=== PATIENT | female | born 1995 | race Caucasian/White ===

== ENCOUNTER 2017-01-19 21:01 | Inpatient (IN) | payer OTHER ==
[~2017-01-19 21:01] MED LIST: Docusate Sodium PO; FERR325T39 PO; Ibuprofen PO; METR500T PO; Oxycodone/Acetaminophen PO; PREN1TAB78 PO; SERT50TA PO
[2017-01-19] MEDS ORDERED: Calcium GLUCOnate 10% (Gm) 1 Gm/10 mL Inj ONE (22:01)
[2017-01-19] MEDS ORDERED: Magnesium Sulfate 4 Gm/100 mL Water Premix IV ONE (22:01)
[2017-01-19] MEDS ORDERED: Betameth Ace-Betam SodPhos 6 mg/mL 5 mL Inj IM ONE (22:15)
[2017-01-19] MEDS ORDERED: Lactated Ringer's 1,000 ML IV ONE (22:15)
[2017-01-19] MEDS ORDERED: Magnesium Sulf 20 Gm/500mL D5W Premix IV SCH (22:20)
[2017-01-19] MEDS ORDERED: Magnesium Sulf 4 Gm/100 mL D5W Premix IV ONE (22:20)
[2017-01-19] MEDS ORDERED: ERYTHROMYCIN BASE 250 MG PO ONE (22:20)
[2017-01-19] MEDS ORDERED: Ampicillin 2,000 mg/100 mL NS Minibag Plus IV SCH ×2 (22:30)
[2017-01-19] MEDS ORDERED: Erythromycin Inj 250 MG in 0.9% Sodium Chloride 100 ML IV ONE (22:30)
[2017-01-19 22:39] VITALS: PULSE 99
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
== END 2017-01-19 22:48 | disposition short-term general hospital (02) | DRG 778 ==
LOC: FBCO 21:01 → FBC 21:58
PROVIDERS: ADMIT Legal Medicine; ATTEND Obstetrics & Gynecology
PROC: 3E033GC Introduction of Other Therapeutic Substance into Peripheral Vein, Percutaneous Approach (ICD-10-PCS; principal; 2017-01-19)
DX: O60.03 Preterm labor without delivery, third trimester (principal); O99.323 Drug use complicating pregnancy, third trimester; F12.90 Cannabis use, unspecified, uncomplicated; Z3A.30 30 weeks gestation of pregnancy

== ENCOUNTER 2017-01-29 13:28 | Emergency (ER) | payer OTHER ==
[~2017-01-29] VITALS: Ht 167.6 cm; Wt 54.0 kg
[~2017-01-29 13:28] MED LIST changes: -Docusate Sodium PO; -FERR325T39 PO; -Ibuprofen PO; -METR500T PO; -Oxycodone/Acetaminophen PO; -SERT50TA PO
[2017-01-29 13:32] VITALS: BP 116/81; PULSE 89; RESP 16; O2SAT 100
--- NOTE | 2017-01-29 14:31 | ED.REPORT ---
HPI-Headache Date of Service Jan 29, 2017 ED Provider: Mauri Alvarenga MD The patient is an otherwise healthy 21 year old female who presents to the emergency department complaining of a headache that began 2 days ago. The patient had an epidural for a vaginal delivery 4 days ago. She developed the headache 2 days after the delivery. Her pain is resolved when laying flat and is exacerbated with standing or sitting up. She has no other complaints at this time. Nursing Notes Stated Complaint: POSS SPINAL HEADACHE Chief Complaint: Headache Nursing Notes Reviewed: Yes (Nuserv, exozet not reconiciled) Allergies: Coded Allergies: No Known Allergies (Unverified Allergy, Unknown, 04/01/14) Scheduled Vits W-Ca,Fe,FA(<1Mg) ( Formula) 1 Each Tablet 1 EACH PO DAILY General Time Seen by MD: 14:26 Chief Complaint Headache Hx Obtained From: Patient Arrived By: Walk-in Sudden in Onset?: Yes Onset Occurred: 2 days ago Symptom Duration: Since onset Location: : Generalized Quality: Painful Severity: Current: Mild Severity: Maximum: Severe Recent Healthcare: Recent doctor visit, Recent hospitalization Similar Sx Previous: No Past Medical History Past Medical History Vaginal delivery with hemorrhage s/p D&C Past Surgical History D&C Family History Noncontributory Smoking History Current Every Day Smoker Social History Other Social History: Local resident Ambulatory Status Independent Review of Systems Neurologic: Reports: Headache Complete sys rev & neg: except as marked. Physical Exam Initial Vital Signs Vital Signs (First) Date Time Temp Pulse Resp B/P Pulse Ox O2 Delivery O2 Flow Rate FiO2 01/29/17 13:32 36.6 89 16 116/81 100 Room Air Initial VS: Reviewed ENT: Mucous membranes moist, Conjunctiva normal, No scleral icterus Respiratory: Breath sounds normal, Clear to auscultation, No respiratory distress Cardiovascular: Regular rate & rhythm, Heart sounds normal, Intact distal pulses Abdomen / GI: Soft, Non-tender, No guarding, No rebound, No distention Lymphatic: No lymphadenopathy Extremities: Vascular intact, Neuro intact, No swelling, No tenderness Skin: Warm, Dry, No cyanosis Psychiatric: Mood/affect normal, Behavior normal, Normal thought content General/Constitutional: Awake, Alert, No acute distress Head / Eyes: Atraumatic, Normocephalic, PERRL, EOMI, No nystagmus, No photophobia, Conjunctiva NL, Temporal arteries NL Neck: Atraumatic, Supple, No meningismus, Full range of motion, No swelling, Non-tender, No masses Neurologic: Oriented X3, Speech NL, No motor deficits, No sensory deficits, CN II - XII intact, Cerebellar NL, Memory NL Re-Eval/Medical Decision Med Decision/Clinical Course This is a pleasant, 21-year-old female who underwent an epidural for delivery at [place] on January 25 and then developed a headache 2 days ago that is highly positional sounds like a spinal headache. She was no symptoms lying flat, anytime she sits up or stands up as a terrible headache. She has had no fevers , numbness, weakness, paresthesias or additional complaint. She is lying flat, has normal neurologic exam. She otherwise appears well. Overall clinical presentation is highly suggestive of a spinal headache, so anesthesia was consulted-they came and performed a blood patch, and the patient responded well. She is being discharged with routine and return precautions. And is now asymptomatic and improved condition. Source of Hx: Old records Re-Evaluation/Progress #1: Time of Eval: 16:51 Re-Evaluation/Progress Note: Procedure was completed. The patient can be discharged after 1700. Re-Evaluation/Progress #2: Time of Eval: 17:43 )( Patient Status: Condition improved Re-Evaluation/Progress Note: Rechecked the patient. She is feeling much better. Discussed plan for discharge. All questions were addressed. Consultation : Consulted With: Anesthesia Call Returned at: 14:38 Note: Someone will see the patient in the next few hours. Differential Diagnosis: Positive: Headache, post LP, Negative: Hemorrhage, cerebellar, Hemorrhage, epidural, Hemorrhage, intracerebral, Hemorrhage, subarachnoid, Hemorrhage, subdural, Intracranial abscess, Medication reaction, Meningitis, Post-traumatic/concussion, Preeclampsia, Pseudotumor cerebri Counseled Regarding: Diagnosis, Lab results, Need for follow-up, When/why to return to ED Discharge & Departure Impression: Primary Impression: Spinal headache Disposition: Home Discharge Condition All VS Reviewed: Yes Condition: Stable Additional Instructions: 1. Your headache was a result of a trace leak from the lumbar puncture U had during her epidural. 2. You underwent a blood patch" today by the anesthesiologist which usually does this. 3. Take it easy tonight. Drink plenty of fluids. 4. Take easy tomorrow, no heavy exertion-but he may return to activities after tomorrow. 5. Return if new worsening symptoms occur. Referrals: NOPCP (PCP) Gela Juan MD (Family) Mile Attestation Portions of this note were transcribed by Lucita Hebert. I, Dr. Alvarenga personally performed the history, physical exam and medical decision-making; I reviewed and confirmed the accuracy of the information in the transcribed note. Signed by: Mile Holland, 01/29/2017 at 1800. copies to: Gela Juan MD, Matthew F MD Jan 29, 2017 14:31 Lucita Hebert Jan 29, 2017 14:43
[2017-01-29] MEDS ORDERED: CAFFEINE CITRATE 20 MG/ML PO ONE (14:55)
[2017-01-29 16:09] VITALS: BP 101/67; PULSE 71; RESP 20; O2SAT 100
[2017-01-29] MEDS ORDERED: Lactated Ringer's 1,000 ML IV ONE (16:35)
[2017-01-29] MEDS ORDERED: 0.9% Sodium Chloride 1,000 ML IV ONE (16:50)
[2017-01-29 17:07] VITALS: BP 105/65; PULSE 79; RESP 20; O2SAT 94
[2017-01-29 17:35] VITALS: BP 130/65; PULSE 56; RESP 20; O2SAT 96
[2017-01-29 18:06] VITALS: BP 117/67; PULSE 63; RESP 20; O2SAT 99
--- NOTE | 2017-01-29 18:39 | PROCED ---
[address] [address] PROCEDURE NOTE PATIENT: DANIELLE LATIF : 1995 MR#: [id number] ADMIT: 01/29/2017 JOB ID: [id number] DATE OF SERVICE: 01/29/2017 PROCEDURE: Epidural blood patch. INDICATION: Post dural puncture headache. POSTOPERATIVE DIAGNOSIS(ES): PREOPERATIVE DIAGNOSIS(ES): Post dural puncture headache. SURGEON: Mauri Rahman MD HISTORY OF PRESENT ILLNESS: The patient is a 21-year-old female who has a post dural puncture headache. She had a labor epidural on January 25 with the delivery of her child. Within about 24-48 hours she began having a positional headache. Her pain was worse when standing or sitting and nearly absent when lying. She reports no blurred vision, no ringing in the ears, no nausea or vomiting. She is able to ambulate without difficulty. PHYSICAL EXAMINATION: Vital Signs: She is febrile and has normal and stable vital signs. Blood pressures have been 110-120 systolic with a pulse rate of 70-80. Oxygen saturation is 100% on room air. DESCRIPTION OF PROCEDURE: The patient was placed in the seated position and her back was sterilely prepped with ChloraPrep solution. The procedure was done in a sterile fashion with sterile gloves, hat, mask, and a sterile drape. Next the epidural insertion site was identified and anesthetized with 1% lidocaine 2 mL. A 18-gauge Tuohy epidural needle was placed and loss of resistance was found at 3 cm. Next, the nurse withdrew a total of 25 mL of the patient's blood and handed it off to Dr. Rahman. Dr. Rahman slowly injected a total of 25 mL of blood into the epidural space. The patient reported no difficult sensations until approximately 23 mL was placed. Then she said that she was feeling pressure and some discomfort so the injection was stopped and the epidural needle was withdrawn. A Band-Aid was placed over the epidural site and she was placed in the supine position. The patient reported that her pain of 9/10 was immediately reduced to approximately 5/10 and when checking with her approximately 15 minutes later she said the pain had dropped to about a 3/10. DISCHARGE INSTRUCTIONS: She was instructed when she returns home to drink large amounts of water and juice and to avoid things like alcohol or caffeinated beverages that could dehydrate her. She was instructed to remain supine at home. She was also instructed to observe signs of complications and to return to the emergency department or contact the emergency department if she should have any of the following signs: Signs infection like redness or discharge from the epidural site, or if she has worsening headache, nausea, double-vision, or lightheadedness. COMPLICATIONS: None apparent. BLOOD LOSS: None.
== END 2017-01-29 18:08 | disposition home or self-care (01) ==
LOC: SED 13:28
DX: G97.1 Other reaction to spinal and lumbar puncture (principal); F17.200 Nicotine dependence, unspecified, uncomplicated
CPT/HCPCS: 62273; 96360; 99284; J7030